=== PATIENT | male | born 1935 | race Caucasian/White ===

== ENCOUNTER → 2016-09-01 | Outpatient (CLI) | payer MEDICARE ==
[~2016-09-01] MED LIST: ASPI81TA85 PO; ASPI81TAEC PO; B-COTAB10 PO; BISO5TAB5 PO; CHEL100T4 PO; CHRO200T3 PO; D-10TAB2 PO; DIOV80TA3 PO; E-20CAP PO; SYNT88TA2 PO; Spiriva INH; ZINC100T4 PO; [UNRECOGNIZED DRUG - CODE] PO
--- NOTE | 2016-09-01 15:00 | REP ---
Chest x-ray: Two views. 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 Comparison radiographs are from November 08, 2015. Findings: The patient is status post prior median sternotomy and there are surgical clips in the soft tissues of the neck bilaterally. There is benign stable bilateral lateral pleural thickening. The pleural angles are sharp. The lungs are hyperinflated but otherwise clear. The heart is enlarged unchanged. Pulmonary vasculature is not increased. There are degenerative disc changes in the thoracic spine. Impression: Hyperinflation. Benign stable pleural thickening. Postoperative changes. No acute disease. Mild cardiomegaly. Signed by Gaurav Brewer MD 09/01/2016 04:35 P
== END ==
LOC: M SMT 13:08
PROVIDERS: ATTEND Internal Medicine Pulmonary Disease
DX: J62.0 Pneumoconiosis due to talc dust (principal)

== ENCOUNTER → 2017-04-12 | Day surgery (SDC) | payer MEDICARE ==
[~2017-04-12] VITALS: Ht 175.3 cm; Wt 98.8 kg
[~2017-04-12] MED LIST changes: +CO Q PO; +FLAX10002 PO; +LIDOCAINE 2% INJ 100 MG/5 ML SDV (FOR ANES.) As Ordered ONE; +LR 500 ML IV SCH; +MAGN250T9 PO; +PROPOFOL 200 MG/20 ML VIAL As Ordered ONE; +VALS1TAB46 PO; +VITA1CAP7 PO; +VITA400C7 PO
--- NOTE | 2017-04-12 08:27 | ROOR ---
Patient Name: Mata Greenberg Procedure Date: 04/12/2017 7:42 AM Date of : 1935 Age: 81 Room: [facility] Gender: Male Note Status: Finalized Procedure: Colonoscopy Indications: Surveillance: Personal history of adenomatous polyps on last colonoscopy > 5 years ago Providers: Mata Perez MD Referring MD: Adam Urbano Requesting Provider: Medicines: Monitored Anesthesia Care Complications: No immediate complications. Procedure: Pre-Anesthesia Assessment: - Prior to the procedure, a History and Physical was performed, and patient medications and allergies were reviewed. The patient is competent. The risks and benefits of the procedure and the sedation options and risks were discussed with the patient. All questions were answered and informed consent was obtained. Patient identification and proposed procedure were verified by the physician, the nurse and the dope edger in the procedure room. Mental Status Examination: alert and oriented. Airway Examination: normal oropharyngeal airway and neck mobility. CV Examination: regular rate and rhythm. Prophylactic Antibiotics: The patient does not require prophylactic antibiotics. Prior Anticoagulants: The patient has taken no previous anticoagulant or antiplatelet agents. ASA Grade Assessment: III - A patient with severe systemic disease. After reviewing the risks and benefits, the patient was deemed in satisfactory condition to undergo the procedure. The anesthesia plan was to use monitored anesthesia care (MAC). Immediately prior to administration of medications, the patient was re-assessed for adequacy to receive sedatives. The heart rate, respiratory rate, oxygen saturations, blood pressure, adequacy of pulmonary ventilation, and response to care were monitored throughout the procedure. The physical status of the patient was re-assessed after the procedure. The Colonoscope was introduced through the anus and advanced to the cecum, identified by appendiceal orifice and ileocecal valve. The colonoscopy was performed without difficulty. The patient tolerated the procedure well. The quality of the bowel preparation was excellent. Findings: The perianal and digital rectal examinations were normal. Multiple medium-mouthed diverticula were found in the sigmoid colon. Three sessile polyps were found in the proximal ascending colon. The polyps were 3 to 5 mm in size. These polyps were removed with a cold snare. Resection and retrieval were complete. A 6 mm polyp was found at 20 cm proximal to the anus. The polyp was sessile. The polyp was removed with a cold snare. Resection and retrieval were complete. Estimated blood loss was minimal. Impression: - Diverticulosis in the sigmoid colon. - Three 3 to 5 mm polyps in the proximal ascending colon, removed with a cold snare. Resected and retrieved. - One 6 mm polyp at 20 cm proximal to the anus, removed with a cold snare. Resected and retrieved. Recommendation: - Await pathology results. - Discharge patient to home. - Resume previous diet. - Continue present medications. - Telephone endoscopist for pathology results in 1 week. Mata Perez MD 04/12/2017 8:27:15 AM Number of Addenda: 0 Note Initiated On: 04/12/2017 7:42 AM Estimated Blood Loss: Estimated blood loss was minimal.
[2017-04-12 08:50] VITALS: BP 136/80
== END | disposition home or self-care (01) ==
LOC: M OPP 06:33
PROVIDERS: ATTEND Surgery
DX: Z12.11 Encounter for screening for malignant neoplasm of colon (principal); Z86.010 Personal history of colon polyps; D12.2 Benign neoplasm of ascending colon; D12.5 Benign neoplasm of sigmoid colon; K57.30 Diverticulosis of large intestine without perforation or abscess without bleeding; I10 Essential (primary) hypertension; I25.10 Atherosclerotic heart disease of native coronary artery without angina pectoris; Z95.5 Presence of coronary angioplasty implant and graft; Z95.1 Presence of aortocoronary bypass graft; I73.9 Peripheral vascular disease, unspecified; R60.0 Localized edema; E66.9 Obesity, unspecified; E03.9 Hypothyroidism, unspecified; K44.9 Diaphragmatic hernia without obstruction or gangrene; M19.90 Unspecified osteoarthritis, unspecified site; R06.02 Shortness of breath; Z86.73 Personal history of transient ischemic attack (TIA), and cerebral infarction without residual deficits; G47.30 Sleep apnea, unspecified; N40.1 Benign prostatic hyperplasia with lower urinary tract symptoms; Z87.891 Personal history of nicotine dependence; Z88.8 Allergy status to other drugs, medicaments and biological substances; Z88.2 Allergy status to sulfonamides; Z79.82 Long term (current) use of aspirin; Z79.899 Other long term (current) drug therapy; Z87.09 Personal history of other diseases of the respiratory system

== ENCOUNTER → 2017-08-29 | Outpatient (CLI) | payer OTHER | LOC: M SMT 11:13 | DX: J62.0 Pneumoconiosis due to talc dust (principal) ==

== ENCOUNTER 2017-10-23 13:23 | Emergency (ER) | payer MEDICARE | END 2017-10-23 15:17 | disposition home or self-care (01) | LOC: M ED 13:23 | DX: J06.9 Acute upper respiratory infection, unspecified (principal); I51.7 Cardiomegaly; Z79.899 Other long term (current) drug therapy; Z79.82 Long term (current) use of aspirin; Z79.890 Hormone replacement therapy; Z88.1 Allergy status to other antibiotic agents; Z88.2 Allergy status to sulfonamides; Z88.8 Allergy status to other drugs, medicaments and biological substances; Z87.891 Personal history of nicotine dependence | CPT/HCPCS: 71046 ==

== ENCOUNTER 2017-12-24 15:27 | Emergency (ER) | payer MEDICARE ==
[2017-12-24 15:59] LABS: BASO % 0.3 % (0.0-1.0); EOS # 0.1 10^3/uL (0.0-0.50); EOS % 2.1 % (0.0-3.0); HEMATOCRIT 46.5 % (42.0-52.0); HEMOGLOBIN 15.5 g/dl (13.5-17.5); IMMATURE GRANULOCYTE % 0.5 % (0-3.0); LYMPH # 1.5 10^3/uL (1.5-4.5); LYMPH % 24.8 % (24.0-44.0); MEAN CORPUSCULAR HEMOGLOBIN 29.9 pg (27.0-33.0); MEAN CORPUSCULAR HGB CONC 33.3 g/dl (32.0-36.5); MEAN CORPUSCULAR VOLUME 89.6 fl (80.0-96.0); MONO # 0.6 10^3/uL (0.0-0.8); MONO % 9.7 % (0.0-5.0); NEUTROPHILS # 3.8 10^3/uL (1.8-7.7); NEUTROPHILS % 62.6 % (36.0-66.0); PLATELET COUNT, AUTOMATED 191 10^3/uL (150-450); RED BLOOD COUNT 5.19 10^6/uL (4.30-6.10); RED CELL DISTRIBUTION WIDTH 12.7 % (11.5-14.5); WHITE BLOOD COUNT 6.1 10^3/uL (4.0-10.0)
[2017-12-24 16:23] LABS: ANION GAP 8 MEQ/L (8-16); BLOOD UREA NITROGEN 20 MG/DL (7-18); CALCIUM LEVEL 8.9 MG/DL (8.8-10.2); CARBON DIOXIDE LEVEL 26 MEQ/L (21-32); CHLORIDE LEVEL 111 MEQ/L (98-107); CK-MB VALUE MASS 12.4 NG/ML (<3.6); CPK CREATINE PHOSPHOKINASE 161 U/L (39-308); GLOMERULAR FILTRATION RATE > 60.0 (>35); GLUCOSE, FASTING 117 MG/DL (70-100); POTASSIUM SERUM 4.2 MEQ/L (3.5-5.1); SODIUM LEVEL 145 MEQ/L (136-145); TROPONIN I 0.91 NG/ML (< 0.10)
[2017-12-24] MEDS: ASPIRIN 81 MG CHEW TABLET PO (16:44)
[2017-12-24 16:49] LABS: INR 0.94; PROTHROMBIN TIME 12.7 SECONDS (12.1-14.4)
[2017-12-24 16:50] LABS: PARTIAL THROMBOPLASTIN TIME 36.2 SECONDS (25.4-37.6)
[2017-12-24] MEDS ORDERED: HEPARIN SOD (PORCINE) 5000 UNITS/ML VIAL As Ordered (16:52)
[2017-12-24] MEDS ORDERED: HEPARIN 25,000 UNITS/250 ML D5W BAG (100 UNITS/ML) As Ordered (16:53)
[2017-12-24 17:01] LABS: NT-PRO BNP 556 PG/ML (<450)
[2017-12-24] MEDS: NITROGLYCERIN 0.4 MG SUBL TABLET SL ×2 (17:02→17:13)
[2017-12-24] MEDS: HEPARIN SOD (PORCINE) 5000 UNITS/ML VIAL IV (17:10)
[2017-12-24] MEDS: HEPARIN DRIP 25,000 UNITS in APPROPRIATE DILUENT 1 EA IV (17:11)
== END 2017-12-24 17:27 | disposition short-term general hospital (02) ==
LOC: M ED 15:27
DX: I21.4 Non-ST elevation (NSTEMI) myocardial infarction (principal); I44.0 Atrioventricular block, first degree; I51.7 Cardiomegaly; I25.10 Atherosclerotic heart disease of native coronary artery without angina pectoris; I25.2 Old myocardial infarction; I10 Essential (primary) hypertension; E78.5 Hyperlipidemia, unspecified; R06.02 Shortness of breath; J44.9 Chronic obstructive pulmonary disease, unspecified; J62.8 Pneumoconiosis due to other dust containing silica; Z95.1 Presence of aortocoronary bypass graft; Z98.61 Coronary angioplasty status; Z79.82 Long term (current) use of aspirin; Z79.899 Other long term (current) drug therapy; Z88.2 Allergy status to sulfonamides; Z88.8 Allergy status to other drugs, medicaments and biological substances
CPT/HCPCS: 71045

== ENCOUNTER → 2018-09-14 | Outpatient (CLI) | payer MEDICARE ==
[~2018-09-14] MED LIST changes: +ATOR1TAB21 PO; +D-3-50003 PO; +LEVO25TA5 PO; -LIDOCAINE 2% INJ 100 MG/5 ML SDV (FOR ANES.) As Ordered ONE; +LOSA25TA14 PO; +LOVA10TA PO; -LR 500 ML IV SCH; +MUCI600T37 PO; -PROPOFOL 200 MG/20 ML VIAL As Ordered ONE; -VALS1TAB46 PO; +VALS1TAB66 PO; -VITA1CAP7 PO; +ZITHTAB PO; +hemp oil SL
--- NOTE | 2018-09-14 10:51 | REP ---
Clinical: Pneumoconiosis. Technique: PA and lateral. Comparison: 10/23/2017. Findings: Mediastinum and cardiac silhouette stable. Prior sternotomy again noted. Lung kidd demonstrate chronic stable changes. No focal consolidation, effusion, or pneumothorax. Evidence for prior thyroid surgery. Impression: Chronic stable changes. No acute cardiopulmonary process appreciated. Electronically Signed by Chele Cid MD 09/14/2018 10:42 A
== END ==
LOC: M SMT 09:48
PROVIDERS: ATTEND Internal Medicine Pulmonary Disease
DX: J62.0 Pneumoconiosis due to talc dust (principal)

== ENCOUNTER → 2018-11-21 | Outpatient (REF) | payer MEDICARE ==
[2018-11-21 15:00] LABS: APPEARANCE, URINE MANUAL CLEAR (CLEAR); COLOR, URINE MANUAL YELLOW (YELLOW); SPECIFIC GRAVITY,URINE MANUAL 1.025 (1.002-1.035)
[2018-11-21 15:01] LABS: BILIRUBIN, URINE MANUAL N (NEGATIVE); BLOOD URINE MANUAL TRACE (NEGATIVE); GLUCOSE, URINE (UA) MANUAL N mg/dL (NEGATIVE); KETONE, URINE MANUAL N mg/dL (NEGATIVE); LEUKOCYTE ESTERASE, URINE MAN TRACE (NEGATIVE); NITRITE, URINE MANUAL N (NEGATIVE); PROTEIN, URINE MANUAL TRACE mg/dL (NEGATIVE); UROBILINOGEN, URINE MANUAL N mg/dl (NORMAL)
[2018-11-21 15:23] LABS: BACTERIA, URINE NONE SEEN; CALCIUM OXALATE CRYSTALS,URINE SMALL AMOUNT /hpf; RBC, URINE 0-1 /hpf (0-3); SQUAMOUS EPITHELIAL CELL URINE SMALL AMOUNT /hpf (SMALL AMT)
[2018-11-21 15:24] LABS: HYALINE CAST, URINE NONE SEEN /lpf (0-1)
== END ==
LOC: M SMT 13:16
PROVIDERS: ATTEND Nurse Practitioner Women's Health
DX: R97.20 Elevated prostate specific antigen [PSA] (principal)

== ENCOUNTER → 2019-10-01 | Outpatient (CLI) | payer MEDICARE ==
[~2019-10-01] MED LIST changes: +BISO5TAB14 PO; -BISO5TAB5 PO
--- NOTE | 2019-10-01 17:13 | REPPI ---
REASON: History of talc pneumoconiosis. Multiple priors were reviewed, the latest 09/14/2018. There is cardiomegaly, status quo. Note is again made of previous median sternotomy. There is no change in the appearance of the lung kidd. No acute patchy parenchymal opacities or pleural effusions have developed. There is no change in appearance of the osseous structures. IMPRESSION: Stable chest without evidence of acute cardiopulmonary disease. Electronically Signed by Sarkis Damon DO 10/01/2019 07:11 P
== END ==
LOC: M PLAIMG 12:56
PROVIDERS: ATTEND Internal Medicine Pulmonary Disease
DX: J62.0 Pneumoconiosis due to talc dust (principal)

== ENCOUNTER 2020-03-29 11:27 | Emergency (ER) | payer MEDICARE, OTHER ==
[~2020-03-29] VITALS: Ht 172.7 cm; Wt 111.0 kg
[~2020-03-29 11:27] MED LIST changes: +CHRO1TAB5 PO; -CHRO200T3 PO
[2020-03-29 11:28] VITALS: BP 155/74
[2020-03-29] MEDS ORDERED: ENTR1TAB PO (11:55)
[2020-03-29] MEDS ORDERED: METO1TAB32 PO (11:55)
[2020-03-29] MEDS ORDERED: LEVO125T4 PO (11:55)
[2020-03-29 12:30] LABS: BASO % 0.5 % (0.0-1.0); EOS # 0.1 10^3/uL (0.0-0.5); EOS % 1.3 % (0.0-3.0); HEMATOCRIT 50.5 % (42.0-52.0); HEMOGLOBIN 16.5 g/dl (13.5-17.5); LYMPH # 1.2 10^3/uL (1.5-5.0); LYMPH % 19.4 % (24.0-44.0); MEAN CORPUSCULAR HEMOGLOBIN 29.5 pg (27.0-33.0); MEAN CORPUSCULAR HGB CONC 32.7 g/dl (32.0-36.5); MEAN CORPUSCULAR VOLUME 90.3 fl (80.0-96.0); MONO # 0.5 10^3/uL (0.0-0.8); MONO % 7.8 % (0.0-5.0); NEUTROPHILS # 4.4 10^3/uL (1.5-8.5); NEUTROPHILS % 70.4 % (36.0-66.0); PLATELET COUNT, AUTOMATED 199 10^3/uL (150-450); RED BLOOD COUNT 5.59 10^6/uL (4.30-6.10); WHITE BLOOD COUNT 6.3 10^3/uL (4.0-10.0)
[2020-03-29 12:40] LABS: INR 0.91; PROTHROMBIN TIME 12.4 SECONDS (12.5-14.3)
[2020-03-29 12:41] LABS: PARTIAL THROMBOPLASTIN TIME 35.2 SECONDS (24.2-38.5)
[2020-03-29 12:51] LABS: ALBUMIN 3.6 GM/DL (3.2-5.2); ALT/SGPT 37 U/L (12-78); BILIRUBIN,TOTAL 0.4 MG/DL (0.2-1.0); BLOOD UREA NITROGEN 19 MG/DL (7-18); CALCIUM LEVEL 8.9 MG/DL (8.8-10.2); CARBON DIOXIDE LEVEL 28 MEQ/L (21-32); CHLORIDE LEVEL 110 MEQ/L (98-107); CREATININE FOR GFR 1.04 MG/DL (0.70-1.30); GLOMERULAR FILTRATION RATE > 60.0 (>35); GLUCOSE, FASTING 140 MG/DL (70-100); POTASSIUM SERUM 4.2 MEQ/L (3.5-5.1); SODIUM LEVEL 142 MEQ/L (136-145); TOTAL PROTEIN 6.7 GM/DL (6.4-8.2)
== END 2020-03-29 14:06 | disposition home or self-care (01) ==
LOC: M ED 11:27
DX: H11.32 Conjunctival hemorrhage, left eye (principal); H15.002 Unspecified scleritis, left eye; I11.0 Hypertensive heart disease with heart failure; I50.9 Heart failure, unspecified; E11.9 Type 2 diabetes mellitus without complications; I25.10 Atherosclerotic heart disease of native coronary artery without angina pectoris; Z88.1 Allergy status to other antibiotic agents; Z88.2 Allergy status to sulfonamides; Z79.899 Other long term (current) drug therapy; Z79.82 Long term (current) use of aspirin

== ENCOUNTER → 2020-05-12 | Outpatient (CLI) | payer MEDICARE ==
[~2020-05-12] MED LIST changes: +ENTR1TAB PO; +LEVO125T4 PO; +METO1TAB32 PO
--- NOTE | 2020-05-13 14:47 | SLEEPCENT ---
NOCTURNAL POLYSOMNOGRAPHY DATE: 05/12/2020 ORDERED BY: Hal Calvin M.D. Nocturnal polysomnography was performed for evaluation of sleep physiology in this patient with a history of excessive somnolence and nonrestorative sleep. 7 hours and 43 minutes of data were reviewed. There were 170.5 minutes of sleep identified. Sleep latency was normal at 33.5 minutes. REM sleep was delayed at 242.5 minutes. Sleep architecture showed fragmentation and poor sleep progression. There was one REM cycle note. Overall sleep efficiency was only 37.3%. The electrocardiogram showed a sinus rhythm with an average heart rate of 64 beats per minute. Rate range 40 to 85. EEG showed normal waveforms for wake and sleep. There were 305 respiratory events identified of 10 seconds in duration or greater for an apnea-hypopnea index of 107.3. The events were primarily obstructive. There were 26 mixed apneas that were not related to sleep stage nor body posture. Arousals from respiratory events occurred 66.9 times per hour and oxygen desaturations were seen into the 70s. There was some minor activity in the limb leads, but limb movement arousals were few. IMPRESSION: Severe obstructive sleep apnea syndrome (G47.33), apnea-hypopnea index 107.3. RECOMMENDATION: The patient should be encouraged to return to [facility] at [facility] earliest convenience. In the interim, alcohol and sedative avoidance should be practiced and caution exercised during the operation of motor vehicles. Dr. Grimes
== END ==
LOC: M SLEEP 20:00
PROVIDERS: ATTEND Internal Medicine Pulmonary Disease
DX: G47.33 Obstructive sleep apnea (adult) (pediatric) (principal)

== ENCOUNTER → 2020-05-27 | Outpatient (CLI) | payer MEDICARE ==
--- NOTE | 2020-05-28 16:37 | SLEEPCENT ---
DATE: 05/27/2020 ORDERED BY: Dr. Calvin Nocturnal polysomnography was performed for the titration of pressure therapy in this patient with severe obstructive sleep apnea syndrome, apnea-hypopnea index 107. For testing, patient was fit with a ResMed AirFit F20 full-face mask of standard size. There was 4 cm of water pressure applied to the circuit, and the lights were extinguished. There were 7 hours and 48 minutes of data reviewed. There was 156 minutes of sleep identified. Sleep latency was prolonged at 80 minutes. REM latency was normal at 111 minutes. Sleep architecture showed fragmentation and poor progression. A prolonged period of wake after 2 a.m., resulted in a reduced sleep efficiency of 33.6%. The electrocardiogram showed what appeared to be a sinus rhythm with an average heart rate of 80 beats per minute. EEG showed reasonably waveforms for wake and sleep. Persistence of respiratory events prompted increase in CPAP pressure. Emergence of central apneas occurred. Bilevel therapy was not attempted. Best sleep was seen on a CPAP pressure of 11, with which the patient did sleep into REM without significant respiratory event or oxygen desaturation. There was some limb movement activity scattered over the course of the study. Limb movement arousal index was 7.7. IMPRESSION: Obstructive sleep apnea syndrome (G47.33). RECOMMENDATION: Initiation of CPAP pressure at 11 cm would seem reasonable based on the above study. If tolerance becomes an issue, a bilevel device may be more effective.
== END ==
LOC: M SLEEP 20:00
PROVIDERS: ATTEND Internal Medicine Pulmonary Disease
DX: G47.33 Obstructive sleep apnea (adult) (pediatric) (principal)

== ENCOUNTER → 2020-08-23 | Outpatient (CLI) | payer MEDICARE ==
[~2020-08-23] MED LIST changes: +ASPI-569 PO; -ASPI81TAEC PO
== END ==
LOC: M LABSMTC 09:14
PROVIDERS: ATTEND Internal Medicine Cardiovascular Disease
DX: Z01.818 Encounter for other preprocedural examination (principal); Z11.52 Encounter for screening for COVID-19

== ENCOUNTER → 2020-10-03 | Outpatient (CLI) | payer MEDICARE ==
--- NOTE | 2020-10-03 13:41 | REPPI ---
INDICATION: J62.0 PNEUMOCONIOSIS DUE TO TALC DUST. COMPARISON: Multiple latest 10/01/2019 TECHNIQUE: PA and lateral FINDINGS: There is cardiomegaly status quo. Note is again made of previous median sternotomy and basilar fibrotic change status quo. There is pleural thickening seen along the lateral chest wall bilaterally status quo. No new abnormal patchy opacities or pleural effusions have developed. There is no change in the osseous structures. IMPRESSION: Stable appearing chronic changes as described above. <Electronically signed by Sarkis Damon > 10/03/20 [id number]
== END ==
LOC: M PLAIMG 12:53
PROVIDERS: ATTEND Internal Medicine Pulmonary Disease
DX: J62.0 Pneumoconiosis due to talc dust (principal)

== ENCOUNTER → 2021-08-10 | Outpatient (CLI) | payer MEDICARE ==
[~2021-08-10] MED LIST changes: +LOSA25TA13 PO; -LOSA25TA14 PO
== END ==
LOC: M RAD 09:59
PROVIDERS: ATTEND Internal Medicine
DX: I71.4 Abdominal aortic aneurysm, without rupture (principal)

== ENCOUNTER → 2021-12-22 | Outpatient (CLI) | payer OTHER | LOC: M RAD 10:40 | PROVIDERS: ATTEND Internal Medicine Pulmonary Disease | DX: J62.0 Pneumoconiosis due to talc dust (principal) ==

== ENCOUNTER 2022-02-09 12:34 | Emergency (ER) | payer MEDICARE, OTHER ==
[~2022-02-09] VITALS: Ht 172.7 cm; Wt 102.3 kg
[2022-02-09] MEDS ORDERED: BENZONATATE 100MG CAPSULE PO ONE (14:45)
[2022-02-09 16:06] LABS: BASO % 0.3 % (0.0-1.0); EOS % 0.3 % (0.0-3.0); HEMATOCRIT 44.7 % (42.0-52.0); HEMOGLOBIN 14.7 g/dl (13.5-17.5); LYMPH # 0.5 10^3/uL (1.5-5.0); LYMPH % 6.8 % (24.0-44.0); MEAN CORPUSCULAR HEMOGLOBIN 29.8 pg (27.0-33.0); MEAN CORPUSCULAR HGB CONC 32.9 g/dl (32.0-36.5); MEAN CORPUSCULAR VOLUME 90.7 fl (80.0-96.0); MONO # 0.9 10^3/uL (0.0-0.8); MONO % 12.1 % (2.0-8.0); NEUTROPHILS # 5.6 10^3/uL (1.5-8.5); NEUTROPHILS % 79.9 % (36.0-66.0); PLATELET COUNT, AUTOMATED 159 10^3/uL (150-450); RED BLOOD COUNT 4.93 10^6/uL (4.30-6.10); WHITE BLOOD COUNT 7.1 10^3/uL (4.0-10.0)
[2022-02-09 16:38] LABS: BLOOD UREA NITROGEN 22 MG/DL (7-18); CALCIUM LEVEL 8.7 MG/DL (8.8-10.2); CARBON DIOXIDE LEVEL 26 MEQ/L (21-32); CHLORIDE LEVEL 106 MEQ/L (98-107); CREATININE FOR GFR 1.17 MG/DL (0.70-1.30); GLOMERULAR FILTRATION RATE > 60.0 (>35); GLUCOSE, FASTING 143 MG/DL (70-100); POTASSIUM SERUM 4.4 MEQ/L (3.5-5.1); SODIUM LEVEL 139 MEQ/L (136-145)
[2022-02-09] MEDS ORDERED: ATOR40TA75 PO (17:34)
[2022-02-09] MEDS ORDERED: TAMS1CAP17 PO (17:34)
[2022-02-09] MEDS ORDERED: NATU1TAB5 PO (17:34)
[2022-02-09] MEDS ORDERED: ZINC50TA4 PO (17:34)
[2022-02-09] MEDS ORDERED: MAGN400T35 PO (17:34)
[2022-02-09] MEDS ORDERED: HOME MED LIST COMPLETE! XX SCH (17:35)
[2022-02-09] MEDS ORDERED: NIRMATRELVIR/RITONAVIR CO-PACK (EMERGENCY USE AUTH) PO SCH ×2 (18:00→21:00)
[2022-02-09 18:43] VITALS: BP 155/70
== END 2022-02-09 18:45 | disposition home or self-care (01) ==
LOC: M ED 12:34
DX: U07.1 COVID-19 (principal); I25.2 Old myocardial infarction; I25.10 Atherosclerotic heart disease of native coronary artery without angina pectoris; E11.9 Type 2 diabetes mellitus without complications; I10 Essential (primary) hypertension; E03.9 Hypothyroidism, unspecified; Z88.2 Allergy status to sulfonamides; Z88.8 Allergy status to other drugs, medicaments and biological substances; Z95.1 Presence of aortocoronary bypass graft; Z79.890 Hormone replacement therapy; Z79.899 Other long term (current) drug therapy; Z79.82 Long term (current) use of aspirin

== ENCOUNTER 2022-03-13 13:07 | Emergency (ER) | payer MEDICARE ==
[~2022-03-13] VITALS: Ht 172.7 cm; Wt 104.1 kg
[~2022-03-13 13:07] MED LIST changes: +ATOR40TA75 PO; +MAGN400T35 PO; +NATU1TAB5 PO; +TAMS1CAP17 PO; +ZINC50TA4 PO
[2022-03-13] MEDS ORDERED: NS 500 ML IV ONE (15:45)
[2022-03-13 15:47] LABS: BASO % 0.4 % (0.0-1.0); EOS % 0.4 % (0.0-3.0); HEMOGLOBIN 15.3 g/dl (13.5-17.5); LYMPH # 1.1 10^3/uL (1.5-5.0); LYMPH % 14.6 % (24.0-44.0); MEAN CORPUSCULAR HEMOGLOBIN 29.7 pg (27.0-33.0); MEAN CORPUSCULAR HGB CONC 32.6 g/dl (32.0-36.5); MEAN CORPUSCULAR VOLUME 91.1 fl (80.0-96.0); MONO # 0.5 10^3/uL (0.0-0.8); PLATELET COUNT, AUTOMATED 182 10^3/uL (150-450); RED BLOOD COUNT 5.16 10^6/uL (4.30-6.10); WHITE BLOOD COUNT 7.7 10^3/uL (4.0-10.0)
[2022-03-13 16:02] LABS: INR 0.98; PROTHROMBIN TIME 13.1 SECONDS (12.5-14.5)
[2022-03-13 16:03] LABS: PARTIAL THROMBOPLASTIN TIME 35.5 SECONDS (24.8-34.2)
[2022-03-13 16:24] LABS: ALBUMIN 3.7 G/DL (3.2-5.2); ALT/SGPT 38 U/L (7.0-40); BILIRUBIN,DIRECT 0.2 MG/DL (<0.4); BILIRUBIN,TOTAL 0.4 MG/DL (0.3-1.2); BLOOD UREA NITROGEN 24 MG/DL (9-23); CALCIUM LEVEL 9.1 MG/DL (8.3-10.6); CARBON DIOXIDE LEVEL 26 MMOL/L (20-31); CHLORIDE LEVEL 106 MMOL/L (98-107); CK-MB VALUE MASS 4.5 NG/ML (<3.6); CPK CREATINE PHOSPHOKINASE 167 U/L (46-171); CREATININE FOR GFR 0.95 MG/DL (0.70-1.30); FREE T4 1.21 NG/DL (0.89-1.76); GLOMERULAR FILTRATION RATE > 60.0 (>35); GLUCOSE, FASTING 121 MG/DL (74-106); MB/CK RELATIVE INDEX 2.69 (< OR =4); POTASSIUM SERUM 4.3 MMOL/L (3.5-5.1); SODIUM LEVEL 140 MMOL/L (136-145); THYROID STIMULATING HORMONE 0.468 uIU/ML (0.55-4.78); TOTAL PROTEIN 6.4 G/DL (5.7-8.2)
[2022-03-13 17:49] LABS: CK-MB VALUE MASS 4.9 NG/ML (<3.6); MB/CK RELATIVE INDEX 3.31 (< OR =4)
[2022-03-13 20:00] VITALS: BP 150/63
[2022-03-13 20:01] LABS: CK-MB VALUE MASS 4.3 NG/ML (<3.6); MB/CK RELATIVE INDEX 2.81 (< OR =4)
== END 2022-03-14 02:48 | disposition home or self-care (01) ==
LOC: M ED 14:35
DX: R55 Syncope and collapse (principal); R06.02 Shortness of breath; R05.9 Cough, unspecified; R94.31 Abnormal electrocardiogram [ECG] [EKG]; I51.7 Cardiomegaly; I25.2 Old myocardial infarction; I25.10 Atherosclerotic heart disease of native coronary artery without angina pectoris; E03.9 Hypothyroidism, unspecified; Z95.1 Presence of aortocoronary bypass graft; Z79.82 Long term (current) use of aspirin; Z79.899 Other long term (current) drug therapy; Z88.2 Allergy status to sulfonamides; Z88.8 Allergy status to other drugs, medicaments and biological substances

== ENCOUNTER 2022-08-13 16:34 | Inpatient (IN) | payer MEDICARE, OTHER ==
[~2022-08-13] VITALS: Ht 172.7 cm; Wt 107.9 kg
[2022-08-13] MEDS ORDERED: NS 1,000 ML IV SCH (17:05)
[2022-08-13 17:37] LABS: BASO % 0.3 % (0.0-1.0); EOS # 0.1 10^3/uL (0.0-0.5); EOS % 0.9 % (0.0-3.0); HEMATOCRIT 45.3 % (42.0-52.0); HEMOGLOBIN 14.7 g/dl (13.5-17.5); LYMPH # 1.3 10^3/uL (1.5-5.0); LYMPH % 18.3 % (24.0-44.0); MEAN CORPUSCULAR HEMOGLOBIN 29.6 pg (27.0-33.0); MEAN CORPUSCULAR HGB CONC 32.5 g/dl (32.0-36.5); MEAN CORPUSCULAR VOLUME 91.1 fl (80.0-96.0); MONO # 0.7 10^3/uL (0.0-0.8); MONO % 9.4 % (2.0-8.0); NEUTROPHILS % 70.8 % (36.0-66.0); PLATELET COUNT, AUTOMATED 217 10^3/uL (150-450); RED BLOOD COUNT 4.97 10^6/uL (4.30-6.10)
[2022-08-13 17:42] LABS: INR 0.98; PROTHROMBIN TIME 13.2 SECONDS (12.5-14.5)
[2022-08-13 17:43] LABS: PARTIAL THROMBOPLASTIN TIME 35.4 SECONDS (24.8-34.2)
[2022-08-13 17:56] LABS: BLOOD UREA NITROGEN 23 MG/DL (9-23); CALCIUM LEVEL 8.9 MG/DL (8.3-10.6); CARBON DIOXIDE LEVEL 27 MMOL/L (20-31); CHLORIDE LEVEL 109 MMOL/L (98-107); CREATININE FOR GFR 1.11 MG/DL (0.70-1.30); GLOMERULAR FILTRATION RATE > 60.0 (>35); GLUCOSE, FASTING 143 MG/DL (74-106); MAGNESIUM LEVEL 1.8 MG/DL (1.8-2.4); POTASSIUM SERUM 4.4 MMOL/L (3.5-5.1); SODIUM LEVEL 142 MMOL/L (136-145)
[2022-08-13 17:59] LABS: FREE T4 1.14 NG/DL (0.89-1.76); THYROID STIMULATING HORMONE 0.512 uIU/ML (0.55-4.78)
[2022-08-13 18:08] LABS: RSV AMPLIFICATION NEGATIVE (NEGATIVE)
[2022-08-13] MEDS ORDERED: NS 500 ML IV ONE (18:35)
[2022-08-13] MEDS ORDERED: HOME MED LIST COMPLETE! XX SCH (18:55)
[2022-08-13] MEDS ORDERED: PIOG1TAB36 PO (18:55)
[2022-08-13] MEDS ORDERED: ACETAMINOPHEN TAB 650MG DOSE (2X325MG) PO PRN (19:40)
[2022-08-13] MEDS ORDERED: ASPIRIN 81MG ENTERIC TABLET PO SCH (21:00)
[2022-08-13] MEDS ORDERED: ATORVASTATIN 20 MG TAB PO SCH (21:00)
[2022-08-13] MEDS ORDERED: METOPROLOL SUCC *XL* 25MG TAB (TopROL *XL*) PO SCH (21:00)
[2022-08-13] MEDS ORDERED: MAGNESIUM OXIDE 400MG TAB (MAG-OX) PO SCH (21:00)
[2022-08-13 21:01] LABS: CK-MB VALUE MASS 3.3 NG/ML (<3.6)
[2022-08-13 21:05] LABS: MB/CK RELATIVE INDEX 2.92 (< OR =4)
[2022-08-13] MEDS ORDERED: GLUCAGON INJ 1MG VIAL SC PRN (21:10)
[2022-08-13] MEDS ORDERED: DEXTROSE 50% 50ML SYRINGE IV PRN (21:10)
[2022-08-13] MEDS ORDERED: GLUCOSE 4GM CHEW TABLET PO PRN (21:10)
[2022-08-13 21:26] LABS: HEMOGLOBIN A1c 6.7 % (4.0-6.0)
[2022-08-13 22:33] VITALS: BP 144/71
[2022-08-13 22:40] VITALS: BP_SYST 137; BP_SYST 144; BP_SYST 150; BP_DIAS 71; BP_DIAS 73; BP_DIAS 74
[2022-08-14] MEDS ORDERED: FLUTICASONE PROP 0.05% NASAL SPRAY 16 GM (FLONASE) NARES PRN (01:10)
[2022-08-14 05:48] VITALS: BP 130/55
[2022-08-14] MEDS ORDERED: LEVOTHYROXINE 125MCG TABLET (0.125MG) PO SCH (06:00)
[2022-08-14 06:11] LABS: HEMATOCRIT 42.9 % (42.0-52.0); HEMOGLOBIN 13.8 g/dl (13.5-17.5); MEAN CORPUSCULAR HEMOGLOBIN 29.2 pg (27.0-33.0); MEAN CORPUSCULAR HGB CONC 32.2 g/dl (32.0-36.5); MEAN CORPUSCULAR VOLUME 90.9 fl (80.0-96.0); PLATELET COUNT, AUTOMATED 188 10^3/uL (150-450); RED BLOOD COUNT 4.72 10^6/uL (4.30-6.10); WHITE BLOOD COUNT 6.5 10^3/uL (4.0-10.0)
[2022-08-14 06:14] VITALS: BP_SYST 138; BP_SYST 142; BP_SYST 158; BP_DIAS 64; BP_DIAS 67; BP_DIAS 82
[2022-08-14 06:38] LABS: ALKALINE PHOSPHATASE 94 U/L (46-116); ALT/SGPT 24 U/L (7.0-40); AST/SGOT 18 U/L (<34); BILIRUBIN,TOTAL 0.4 MG/DL (0.3-1.2); BLOOD UREA NITROGEN 22 MG/DL (9-23); CALCIUM LEVEL 8.4 MG/DL (8.3-10.6); CARBON DIOXIDE LEVEL 25 MMOL/L (20-31); CHLORIDE LEVEL 110 MMOL/L (98-107); CREATININE FOR GFR 0.89 MG/DL (0.70-1.30); GLOMERULAR FILTRATION RATE > 60.0 (>35); GLUCOSE, FASTING 118 MG/DL (74-106); POTASSIUM SERUM 3.9 MMOL/L (3.5-5.1); SODIUM LEVEL 143 MMOL/L (136-145); TOTAL PROTEIN 5.7 G/DL (5.7-8.2)
[2022-08-14] MEDS: INSULIN LISPRO (NovoLOG) PER UNIT SC SCH ×2 (07:30→12:00)
[2022-08-14 08:14] VITALS: BP 132/62
[2022-08-14] MEDS ORDERED: ENTRESTO 24-26MG TABLET (SACUBITRIL/VALSARTAN) PO SCH (09:00)
[2022-08-14] MEDS ORDERED: ENOXAPARIN 40MG/0.4ML SYRINGE (J1650 PER 10MG) SC SCH (09:00)
[2022-08-14] MEDS ORDERED: METO1TAB32 PO (11:39)
[2022-08-14] MEDS ORDERED: TAMS1CAP17 PO (11:39)
[2022-08-14] MEDS ORDERED: ENTR1TAB PO (11:39)
[2022-08-14] MEDS ORDERED: METOPROLOL SUCC *XL* 12.5MG PER 1/2 TAB (TopROL *XL*) PO SCH (21:00)
[2022-08-14] MEDS ORDERED: INSULIN LISPRO (NovoLOG) PER UNIT SC SCH (21:00)
== END 2022-08-14 12:14 | disposition home or self-care (01) | DRG 312 ==
LOC: M ED 16:34 → M ED INP 19:37 → ENRESERV 21:19 → M MSPAV 22:32
PROVIDERS: ADMIT Family Medicine; ATTEND Internal Medicine Nephrology
DX: I95.2 Hypotension due to drugs (principal); J84.9 Interstitial pulmonary disease, unspecified; I50.42 Chronic combined systolic (congestive) and diastolic (congestive) heart failure; I25.10 Atherosclerotic heart disease of native coronary artery without angina pectoris; I11.0 Hypertensive heart disease with heart failure; N40.0 Benign prostatic hyperplasia without lower urinary tract symptoms; G47.33 Obstructive sleep apnea (adult) (pediatric); K58.0 Irritable bowel syndrome with diarrhea; M19.90 Unspecified osteoarthritis, unspecified site; E66.9 Obesity, unspecified; I44.0 Atrioventricular block, first degree; K44.9 Diaphragmatic hernia without obstruction or gangrene; M10.9 Gout, unspecified; E11.9 Type 2 diabetes mellitus without complications; E78.5 Hyperlipidemia, unspecified; E03.9 Hypothyroidism, unspecified; Z66 Do not resuscitate; Z86.73 Personal history of transient ischemic attack (TIA), and cerebral infarction without residual deficits; Z79.82 Long term (current) use of aspirin; Z79.899 Other long term (current) drug therapy; Z88.1 Allergy status to other antibiotic agents; Z88.2 Allergy status to sulfonamides; Z88.8 Allergy status to other drugs, medicaments and biological substances; Z87.891 Personal history of nicotine dependence; Z95.5 Presence of coronary angioplasty implant and graft; Z68.36 Body mass index [BMI] 36.0-36.9, adult

== ENCOUNTER → 2022-12-20 | Outpatient (CLI) | payer OTHER, MEDICARE ==
[~2022-12-20] MED LIST changes: +PIOG1TAB36 PO
== END ==
LOC: M PLAIMG 10:34
PROVIDERS: ATTEND Internal Medicine Pulmonary Disease
DX: J62.0 Pneumoconiosis due to talc dust (principal); I51.7 Cardiomegaly

== ENCOUNTER 2023-08-03 23:13 | Emergency (ER) | payer MEDICARE, OTHER ==
[~2023-08-03] VITALS: Ht 172.7 cm; Wt 107.9 kg
[2023-08-04 00:46] LABS: BASO % 0.6 % (0.0-1.0); EOS # 0.1 10^3/uL (0.0-0.5); EOS % 2.5 % (0.0-3.0); HEMATOCRIT 42.6 % (42.0-52.0); HEMOGLOBIN 14.3 g/dl (13.5-17.5); LYMPH # 1.3 10^3/uL (1.5-5.0); LYMPH % 25.2 % (24.0-44.0); MEAN CORPUSCULAR HEMOGLOBIN 30.5 pg (27.0-33.0); MEAN CORPUSCULAR HGB CONC 33.6 g/dl (32.0-36.5); MEAN CORPUSCULAR VOLUME 90.8 fl (80.0-96.0); MONO # 0.5 10^3/uL (0.0-0.8); MONO % 9.1 % (2.0-8.0); NEUTROPHILS # 3.2 10^3/uL (1.5-8.5); NEUTROPHILS % 62.2 % (36.0-66.0); PLATELET COUNT, AUTOMATED 198 10^3/uL (150-450); RED BLOOD COUNT 4.69 10^6/uL (4.30-6.10); WHITE BLOOD COUNT 5.2 10^3/uL (4.0-10.0)
[2023-08-04 01:10] LABS: BLOOD UREA NITROGEN 22 MG/DL (9-23); CALCIUM LEVEL 8.8 MG/DL (8.3-10.6); CARBON DIOXIDE LEVEL 27 MMOL/L (20-31); CHLORIDE LEVEL 112 MMOL/L (98-107); CREATININE FOR GFR 0.86 MG/DL (0.70-1.30); GLOMERULAR FILTRATION RATE > 60.0 (>35); GLUCOSE, FASTING 111 MG/DL (74-106); MAGNESIUM LEVEL 1.9 MG/DL (1.8-2.4); POTASSIUM SERUM 4.3 MMOL/L (3.5-5.1); SODIUM LEVEL 145 MMOL/L (136-145)
[2023-08-04 01:12] LABS: CK-MB VALUE MASS 3.9 NG/ML (<3.6)
[2023-08-04 01:14] LABS: CPK CREATINE PHOSPHOKINASE 137 U/L (46-171); MB/CK RELATIVE INDEX 2.84 (< OR =4)
[2023-08-04 02:18] LABS: CK-MB VALUE MASS 3.7 NG/ML (<3.6); MB/CK RELATIVE INDEX 2.8 (< OR =4)
[2023-08-04 03:15] VITALS: BP 146/68; TEMP 97.4; O2SAT 97
== END 2023-08-04 03:30 | disposition home or self-care (01) ==
LOC: M ED 23:13
DX: R00.2 Palpitations (principal); I49.3 Ventricular premature depolarization; I25.119 Atherosclerotic heart disease of native coronary artery with unspecified angina pectoris; E11.9 Type 2 diabetes mellitus without complications; I10 Essential (primary) hypertension; E78.5 Hyperlipidemia, unspecified; G47.33 Obstructive sleep apnea (adult) (pediatric); Z87.891 Personal history of nicotine dependence; Z88.2 Allergy status to sulfonamides; Z88.8 Allergy status to other drugs, medicaments and biological substances; Z79.1 Long term (current) use of non-steroidal anti-inflammatories (NSAID); Z79.899 Other long term (current) drug therapy

== ENCOUNTER → 2024-01-10 | Outpatient (CLI) | payer MEDICARE | LOC: M PLAIMG 10:05 | PROVIDERS: ATTEND Internal Medicine Pulmonary Disease | DX: J62.0 Pneumoconiosis due to talc dust (principal) ==

== ENCOUNTER 2024-04-18 13:50 | Emergency (ER) | payer MEDICARE ==
[~2024-04-18] VITALS: Ht 172.7 cm; Wt 105.0 kg
[2024-04-18] MEDS ORDERED: COQ150CH PO (13:58)
[2024-04-18] MEDS: LIDOCAINE 2% 5ML JELLY UROJET TOP ONE (14:30)
[2024-04-18 15:23] LABS: BASO % 0.4 % (0.0-1.0); EOS # 0.1 10^3/uL (0.0-0.5); EOS % 1.3 % (0.0-3.0); HEMATOCRIT 41.3 % (42.0-52.0); HEMOGLOBIN 13.9 g/dl (13.5-17.5); LYMPH # 1.2 10^3/uL (1.5-5.0); LYMPH % 21.8 % (24.0-44.0); MEAN CORPUSCULAR HEMOGLOBIN 30.3 pg (27.0-33.0); MEAN CORPUSCULAR HGB CONC 33.7 g/dl (32.0-36.5); MONO # 0.5 10^3/uL (0.0-0.8); MONO % 9.4 % (2.0-8.0); NEUTROPHILS # 3.7 10^3/uL (1.5-8.5); NEUTROPHILS % 66.6 % (36.0-66.0); PLATELET COUNT, AUTOMATED 200 10^3/uL (150-450); RED BLOOD COUNT 4.59 10^6/uL (4.30-6.10); WHITE BLOOD COUNT 5.5 10^3/uL (4.0-10.0)
[2024-04-18 15:52] LABS: ALBUMIN 3.5 G/DL (3.2-5.2); ALKALINE PHOSPHATASE 121 U/L (40-129); ALT/SGPT 29 U/L (7.0-40); AST/SGOT 24 U/L (<34); BILIRUBIN,DIRECT < 0.1 MG/DL (<0.4); BILIRUBIN,TOTAL 0.3 MG/DL (0.3-1.2); BLOOD UREA NITROGEN 20 MG/DL (9-23); CALCIUM LEVEL 9.5 MG/DL (8.3-10.6); CARBON DIOXIDE LEVEL 26 MMOL/L (20-31); CHLORIDE LEVEL 109 MMOL/L (98-107); CREATININE FOR GFR 0.91 MG/DL (0.70-1.30); GLOMERULAR FILTRATION RATE > 60.0 (>35); GLUCOSE, FASTING 178 MG/DL (74-106); MAGNESIUM LEVEL 2.1 MG/DL (1.8-2.4); POTASSIUM SERUM 4.2 MMOL/L (3.5-5.1); SODIUM LEVEL 144 MMOL/L (136-145); TOTAL PROTEIN 6.5 G/DL (5.7-8.2)
[2024-04-18 15:58] LABS: CPK CREATINE PHOSPHOKINASE 122 U/L (46-171)
[2024-04-18 16:21] VITALS: BP 169/78; TEMP 96.9; O2SAT 95
== END 2024-04-18 17:22 | disposition home or self-care (01) ==
LOC: M ED 13:50
DX: R31.0 Gross hematuria (principal); I25.119 Atherosclerotic heart disease of native coronary artery with unspecified angina pectoris; E11.9 Type 2 diabetes mellitus without complications; N40.0 Benign prostatic hyperplasia without lower urinary tract symptoms; E03.9 Hypothyroidism, unspecified; Z88.2 Allergy status to sulfonamides; Z88.8 Allergy status to other drugs, medicaments and biological substances; Z79.1 Long term (current) use of non-steroidal anti-inflammatories (NSAID); Z79.899 Other long term (current) drug therapy

== ENCOUNTER → 2024-05-11 | Outpatient (REF) | payer MEDICARE ==
[~2024-05-11] MED LIST changes: +COQ150CH PO
[2024-05-11 18:20] LABS: APPEARANCE, URINE CLOUDY (CLEAR); BACTERIA, URINE AUTO NEGATIVE (NEGATIVE); BILIRUBIN, URINE AUTO NEGATIVE (NEGATIVE); BLOOD, URINE BLOOD 3+ (NEGATIVE); COLOR, URINE AMBER (YELLOW); GLUCOSE, URINE (UA) AUTO 1+ mg/dL (NEGATIVE); KETONE, URINE AUTO TRACE mg/dL (NEGATIVE); LEUKOCYTE ESTERASE, URINE AUTO NEGATIVE (NEGATIVE); MUCUS, URINE SMALL (NEGATIVE); NITRITE, URINE AUTO NEGATIVE (NEGATIVE); PROTEIN, URINE AUTO 2+ mg/dL (NEGATIVE); RBC, URINE AUTO 84 /HPF (0-3); SPECIFIC GRAVITY URINE AUTO 1.024 (1.002-1.035); SQUAMOUS EPITHELIAL CELL UR AU 0 /HPF (0-6); UROBILINOGEN, URINE AUTO 0.2 mg/dL (0.0-2.0); WBC, URINE AUTO 0 /HPF (0-3)
== END ==
LOC: M SMT 17:08
PROVIDERS: ATTEND Nurse Practitioner Family
DX: R31.0 Gross hematuria (principal)

== ENCOUNTER → 2024-06-06 | Outpatient (REF) | payer MEDICARE ==
[2024-06-06 18:25] LABS: APPEARANCE, URINE HAZY (CLEAR); BACTERIA, URINE AUTO NEGATIVE (NEGATIVE); BILIRUBIN, URINE AUTO NEGATIVE (NEGATIVE); BLOOD, URINE BLOOD 1+ (NEGATIVE); COLOR, URINE AMBER (YELLOW); GLUCOSE, URINE (UA) AUTO 1+ mg/dL (NEGATIVE); KETONE, URINE AUTO NEGATIVE (NEGATIVE); LEUKOCYTE ESTERASE, URINE AUTO NEGATIVE (NEGATIVE); NITRITE, URINE AUTO NEGATIVE (NEGATIVE); PROTEIN, URINE AUTO NEGATIVE (NEGATIVE); RBC, URINE AUTO 48 /HPF (0-3); SPECIFIC GRAVITY URINE AUTO 1.017 (1.002-1.035); SQUAMOUS EPITHELIAL CELL UR AU 0 /HPF (0-6); UROBILINOGEN, URINE AUTO 0.2 mg/dL (0.0-2.0); WBC, URINE AUTO 0 /HPF (0-3)
== END ==
LOC: M SMT 17:20
PROVIDERS: ATTEND Urology
DX: R31.0 Gross hematuria (principal)

== ENCOUNTER → 2024-06-11 | Outpatient (REF) | payer MEDICARE | LOC: M LAB REF 16:07 | PROVIDERS: ATTEND Nurse Practitioner Family | DX: R31.0 Gross hematuria (principal) ==

== ENCOUNTER → 2024-06-20 | Outpatient (CLI) | payer MEDICARE ==
[~2024-06-20] MED LIST changes: +ISOVUE-370 76% 100ML VIAL ONE
== END ==
LOC: M PLAIMG 13:05
PROVIDERS: ATTEND Urology
DX: R31.0 Gross hematuria (principal)
CPT/HCPCS: 74178; Q9967

== ENCOUNTER → 2025-01-23 | Outpatient (CLI) | payer MEDICARE, OTHER ==
[~2025-01-23] MED LIST changes: -ISOVUE-370 76% 100ML VIAL ONE; +ZINC50TA37 PO; -ZINC50TA4 PO
== END ==
LOC: M PLAIMG 14:24
PROVIDERS: ATTEND Internal Medicine Pulmonary Disease
DX: J62.0 Pneumoconiosis due to talc dust (principal)

== ENCOUNTER → 2025-01-30 | Outpatient (REF) | payer OTHER, MEDICARE | LOC: M SMT 12:47 | PROVIDERS: ATTEND Urology | DX: R31.0 Gross hematuria (principal) ==

== ENCOUNTER 2025-02-06 19:28 | Emergency (ER) | payer MEDICARE, OTHER ==
[~2025-02-06] VITALS: Ht 172.7 cm; Wt 102.3 kg
[2025-02-06 22:14] VITALS: BP 190/81; TEMP 98.7; O2SAT 98
== END 2025-02-06 23:15 | disposition left against medical advice (07) ==
LOC: M ED 19:28
DX: Z53.21 Procedure and treatment not carried out due to patient leaving prior to being seen by health care provider (principal)